=== PATIENT | female | born 1995 | race African-American/Black ===

== ENCOUNTER 2019-07-04 17:59 | Emergency (ER) | payer OTHER, SELFPAY ==
[2019-07-04 18:13] VITALS: BP 123/85; PULSE 92; RESP 18; TEMP 37.2; O2SAT 100
--- NOTE | 2019-07-04 19:02 | ED.DENTAL ---
HPI - Dental/Oral General Chief complaint: Dental/Oral Stated complaint: Tooth Ache Time Seen by Provider: 07/04/19 19:02 Source: patient Mode of arrival: ambulatory Limitations: no limitations History of Present Illness HPI Narrative: Tamika Min is a 23 yo female with no PMH who comes here with tooth pain x 3 days. Has tried to make an appointment with a dentist, is having trouble finding one that will take her. Pain is in tooth 2, 3 Related Data Allergies Allergy/AdvReac Type Severity Reaction Status Date / Time No Known Allergies Allergy Verified 07/04/19 18:09 Review of Systems Review of Systems: Narrative: CONSTITUTIONAL: Denies fever, chills, sweats. EYES: Denies visual changes, redness, discharge. ENT: Denies rhinorrhea, congestion, sore throat, otalgia. CARDIOVASCULAR: Denies chest pain, palpitations, edema. RESPIRATORY: Denies dyspnea, wheezing, cough GASTROINTESTINAL: Denies abdominal pain, nausea, vomiting, diarrhea. GENITOURINARY: Denies dysuria, hematuria, abnormal discharge SKIN: Denies rash or itching. NEUROLOGIC: Denies numbness, or focal weakness. PSYCHIATRIC: Denies anxiety or depression. Mouth: Tooth pain in teeth 2 and 3 PMFSH Family History Family History Other No active medical problems Social History Social History (Updated 07/04/19 @ 19:05 by Soniya Louis CNP) Smoking status: Never smoker Alcohol intake: never Comments At time of signature, I agree with nursing past medical, surgical, social and family history. There is no relevant family history pertinent to the presenting complaint. Exam Narrative: Exam Narrative: GENERAL: This is a well-nourished, well-developed patient, in mild distress. HEAD: normocephalic, atraumatic. EYES: PERRL. Sclera clear/white. Vision is grossly intact. EARS: External ears normal, Hearing grossly intact. NOSE: External nose normal with no obvious nasal discharge, nares without redness, no rhinorrhea. THROAT: Mucous membranes moist, posterior pharynx clear. Swelling around tooth 2 and 3, painful to open mouth wide NECK: Neck supple, non-tender without lymphadenopathy, masses or thyromegaly. CARDIOVASCULAR: Regular rate and rhythm without murmurs, gallops, or rubs. RESPIRATORY: Clear to auscultation. Breath sounds equal bilaterally. No wheezes, rales, or rhonchi. GASTROINTESTINAL: Abdomen soft, non-tender, nondistended. SKIN: warm, intact with no suspicious lesions or rash, good texture and turgor. NEURO: awake, alert, and oriented to person, place and time. There were no obvious focal neurologic abnormalities. Steady gait EXTREMITIES: Normal range of motion. No edema. BACK: Nontender without deformity or crepitance. No flank tenderness. Course Course Emergency Course: Started on penicillin ibuprofen and tramadol for tooth pain Vital Signs Vital signs: Vital Signs Temperature 98.9 F 07/04/19 18:13 Pulse Rate 92 07/04/19 18:13 Respiratory Rate 18 07/04/19 18:13 Blood Pressure 123/85 07/04/19 18:13 Pulse Oximetry 100 07/04/19 18:13 Temperature 98.9 F 07/04/19 18:13 Pulse Rate 92 07/04/19 18:13 Respiratory Rate 18 07/04/19 18:13 Blood Pressure 123/85 07/04/19 18:13 Pulse Oximetry 100 07/04/19 18:13 MDM - Dental/Oral Differential Diagnosis Differential diagnosis: Likely gingival abscess, dental caries, toothache and dental abscess Discharge Plan Discharge Clinical Impression: Toothache Patient Disposition: Home, Self-Care Condition: Stable Instructions: Toothache (ED) Prescriptions: New penicillin V potassium 500 mg tablet 500 mg PO Q8H Qty: 30 RF: 0 ibuprofen 600 mg tablet 600 mg PO Q6H PRN (Reason: pain) Qty: 30 RF: 0 tramadol 50 mg tablet 50 mg PO Q6H PRN (Reason: pain) Qty: 14 RF: 0 Follow-up/Referrals: UNKNOWN,DOCTOR [Primary Care Provider] - Stand Alone Forms: Work/School Release IP
== END 2019-07-04 19:12 | disposition home or self-care (01) ==
PROVIDERS: Emergency Provider Nurse Practitioner
DX: K08.89 Other specified disorders of teeth and supporting structures (principal)
CPT/HCPCS: 99203; G0463

== ENCOUNTER 2019-10-20 15:40 | Emergency (ER) | payer OTHER, SELFPAY ==
[2019-10-20 15:51] VITALS: BP 110/64; PULSE 73; RESP 16; TEMP 37.3; O2SAT 100
--- NOTE | 2019-10-20 16:22 | ED.DENTAL ---
HPI - Dental/Oral General Chief complaint: Dental/Oral Stated complaint: tooth abscess Time Seen by Provider: 10/20/19 16:14 Source: patient and RN notes reviewed Mode of arrival: ambulatory Limitations: no limitations History of Present Illness HPI Narrative: Patient presents today complaining of a 4-day history of pain to the right upper tooth. States she has had a hole in this tooth for several months, but her dentist appointment was canceled due to COVID-19, and rescheduled for January 03. She currently rates her pain 10/10 and has been taking Tylenol and ibuprofen without relief. Pain increases with eating. No recent antibiotic use. MD Complaint: tooth pain Related Data Home Medications Medication Instructions Recorded Confirmed etonogestrel-ethinyl estradiol 1 vag ring VAGINAL ONCE 10/20/19 10/20/19 [NuvaRing] Allergies Allergy/AdvReac Type Severity Reaction Status Date / Time No Known Allergies Allergy Verified 10/20/19 15:57 Review of Systems Review of Systems: Narrative: CONSTITUTIONAL: Denies body aches, fever, chills, or sweats. EYES: Denies visual changes, redness, or discharge. ENT: Denies rhinorrhea, congestion, sore throat, or otalgia.+ Dental pain CARDIOVASCULAR: Denies chest pain, palpitations, or edema. RESPIRATORY: Denies cough or dyspnea. GASTROINTESTINAL: Denies abdominal pain, nausea, vomiting, or diarrhea. GENITOURINARY: Denies dysuria or hematuria. SKIN: Denies rash, itching, or wounds. MUSCULOSKELETAL: Denies back pain, joint pain, or myalgia. NEUROLOGIC: Denies headache, numbness, tingling, or weakness. PSYCH: Denies depression or anxiety. PMFSH Social History Social History (Updated 07/04/19 @ 19:05 by Soniya Louis CNP) Smoking status: Never smoker Alcohol intake: never Gender identity (if verbalized by the patient): Female Comments At time of signature, I have reviewed and agree with nursing past medical, surgical, social and family history unless otherwise noted. Please see nursing chart for further information. There is no relevant family history pertinent to the presenting complaint Exam Narrative: Exam Narrative: GENERAL: Well-appearing, well-nourished, and in no acute distress. HEAD: Normocephalic, atraumatic. EYES: EOMI. No redness or drainage. Conjunctivae normal. ENT: Mucous membranes pink and moist. Throat normal. Uvula midline. + Tooth #2 has large cavity in the lateral half of the tooth. No obvious periapical abscess. No facial swelling. NECK: Normal AROM. Supple. No lymphadenopathy. CHEST: No respiratory distress. EXTREMITIES: Normal range of motion. No edema. SKIN: Warm, dry, no rash. Capillary refill normal. Normal skin turgor. NEURO: No focal deficits. Alert and oriented x3. Gait steady. PSYCH: Normal affect. No signs of depression or anxiety. Course Vital Signs Vital signs: Vital Signs Temperature 99.2 F 10/20/19 15:51 Pulse Rate 73 10/20/19 15:51 Respiratory Rate 16 10/20/19 15:51 Blood Pressure 110/64 10/20/19 15:51 Pulse Oximetry 100 10/20/19 15:51 Temperature 99.2 F 10/20/19 15:51 Pulse Rate 73 10/20/19 15:51 Respiratory Rate 16 10/20/19 15:51 Blood Pressure 110/64 10/20/19 15:51 Pulse Oximetry 100 10/20/19 15:51 Reviewed MDM - Dental/Oral Differential Diagnosis Differential diagnosis: Likely gingival abscess, dental caries, toothache, dental abscess and fracture of tooth Critical Care Time Critical Care Time Critical Care Time: No Discharge Plan Discharge Clinical Impression: Infected dental carries Patient Disposition: Home, Self-Care Condition: Stable Instructions: Antibiotic Form, Toothache (ED) Additional Instructions: Please take the amoxicillin as prescribed until gone. Follow-up with a dentist as soon as possible for further evaluation. Continue Tylenol or ibuprofen at home for pain. Patient Language: Sudanese Prescriptions: New amoxicillin 875 mg tabl
== END 2019-10-20 16:27 | disposition home or self-care (01) ==
PROVIDERS: Emergency Provider Nurse Practitioner
DX: K02.9 Dental caries, unspecified (principal)
CPT/HCPCS: 99213; G0463

== ENCOUNTER 2020-02-02 19:53 | Emergency (ER) | payer OTHER, SELFPAY ==
--- NOTE | ~2020-02-02 | CT_ITS ---
EXAMINATION: CT abdomen pelvis wo con DATE: 02/02/2020 21:21 INDICATION: Left flank pain TECHNIQUE: Computed tomography (CT) of the abdomen and pelvis was performed without intravenous contr ast. The dose-length product (DLP) was 497.52 mGy-cm. Automated exposure control and iterative recons truction technique were employed. COMPARISON: None FINDINGS: The lung bases are clear. The heart size is normal. The liver, spleen, pancreas, gallbladde r, and adrenal glands are normal. The kidneys are unremarkable. No stones are identified in the kidne ys, ureters, or bladder. There is no hydronephrosis or hydroureter. A 2 mm calcification of the left pelvis appears to be adjacent to, rather than within the left distal ureter. A trace amount of free f luid in the pelvis is likely physiologic. The appendix is normal. There is mild dextrocurvature of th e lumbar spine. IMPRESSION: 1. No CT correlate for the patient's symptoms. Reviewed, dictated and finalized at location A.
[2020-02-02 20:00] VITALS: BP 115/70; PULSE 85; RESP 20; TEMP 36.1; O2SAT 98
[2020-02-02 20:26] LABS: Basophils Percent Auto 0.5 % (0.2-1.2); Eosinophils Absolute Auto 0.2 K/mm3 (0-0.3); Eosinophils Percent Auto 2.7 % (0-4.4); Hematocrit 41.7 % (37.0-47.0); Hemoglobin 13.5 g/dL (12.0-15.0); Immature Granulocyte Absolute 0.02 K/mm3 (0.00-0.031); Immature Granulocyte Percent A 0.3 % (0-0.5); Lymphocytes Absolute Auto 2.44 K/mm3 (0.9-3.2); Lymphocytes Percent Auto 38.9 % (18.3-44.2); Mean Corpuscular HGB Conc 32.4 g/dl (32-36); Mean Corpuscular Volume 89.5 fl (80-100); Mean Platelet Volume 10.2 fl (7.4-10.4); Monocytes Absolute Auto 0.3 K/mm3 (0.1-0.6); Monocytes Percent Auto 4.9 % (2.6-8.5); Neutrophils Absolute Auto 3.3 K/mm3 (1.3-6.7); Neutrophils Percent Auto 52.7 % (45.5-73.1); Platelet Count Result 210 k/mm3 (150-375); Red Blood Count 4.66 M/mm3 (4.2-5.4); Red Cell Distribution Width 12.3 % (11.5-14.5); White Blood Count 6.3 K/mm3 (4.5-10.0)
[2020-02-02 20:40] LABS: Anion Gap 5 mmol/L (8-16); Blood Urea Nitrogen 17 mg/dL (7-17); Calcium 9.6 mg/dL (8.4-10.2); Carbon Dioxide 28 mmol/L (22-30); Chloride 103 mmol/L (98-107); Estimated CRCL calculation 89 ml/min; Estimated Glomerular Filt Rate > 60; Glucose 116 mg/dL (65-105); Potassium 4.3 mmol/L (3.4-5.0); Sodium 136 mmol/L (137-145)
[2020-02-02 21:12] LABS: Add Urine Microscopic? YES; Appearance Urine Cloudy (Clear); Bacteria Urine 2+ /hpf; Bilirubin Urine Negative (Negative); Blood Urine Negative (Negative); Color Urine Yellow (Yellow); Glucose Urine UA Negative (Negative); Ketones Urine Negative (Negative); Leukocyte Esterase Ur 3+ LEU/UL (Negative); Mucus Urine Rare /lpf; Nitrate Urine Negative (Negative); Protein Urine Negative (Negative); RBC Urine 0-2 /hpf (0-2); Specific Grav Ur 1.027 (1.001-1.035); Squamous Epithelial Cell Urine Many /hpf (Few)
--- NOTE | 2020-02-02 21:19 | ED.BACK ---
HPI - Back Pain/Injury General Chief Complaint: Back Pain/Injury Stated Complaint: sharp left side/back pain Time Seen by Provider: 02/02/20 19:54 Source: patient Mode of arrival: ambulatory Limitations: no limitations History of Present Illness HPI Narrative: Patient presents with chief complaint of left flank pain and frequent urination that began on Saturday. Patient states that the pain radiates into her lower back and is rated 8 out of 10 pain level. Patient denies fever, chills, nausea, vomiting, diarrhea. Patient states that she has been taking [id number] pain medications at home without relief of her symptoms as well as try to drink lots of fluids. Patient denies burning with urination, vaginal bleeding or discharge. Patient denies prior history of kidney stones or frequent urinary tract infections. Related Data Home Medications Medication Instructions Recorded Confirmed etonogestrel-ethinyl estradiol 1 vag ring VAGINAL ONCE 10/20/19 10/20/19 [NuvaRing] Allergies Allergy/AdvReac Type Severity Reaction Status Date / Time No Known Allergies Allergy Verified 02/02/20 19:54 Review of Systems Review of Systems: Narrative: CONSTITUTIONAL: Denies fever, chills, or sweats. EYES: Denies visual changes, redness, or discharge. ENT: Denies rhinorrhea, congestion, sore throat, or otalgia. CARDIOVASCULAR: Denies chest pain, palpitations, or edema. RESPIRATORY: Denies cough or dyspnea. GASTROINTESTINAL: Denies abdominal pain, nausea, vomiting, or diarrhea. GENITOURINARY: Reports frequent urination and left flank pain denies dysuria or hematuria. SKIN: Denies rash or itching. MUSCULOSKELETAL: Denies back pain, myalgia, or joint pain NEUROLOGIC: Denies headache, numbness, dizziness, or weakness. PSYCHIATRIC: Denies anxiety or depression. [facility] Social History Social History (Updated 07/04/19 @ 19:05 by Soniya Louis CNP) Smoking status: Never smoker Alcohol intake: never Gender identity (if verbalized by the patient): Female Exam Narrative: Exam Narrative: GENERAL: Well-appearing, well-nourished. HEAD: Normocephalic, atraumatic. EYES: PERRLA and EOMI. ENT: Nares clear, no rhinorrhea or epistaxis. Mucous membranes moist. Oropharynx without tonsillar hypertrophy exudate or other lesions. Bilateral TMs pearly clark nonbulging NECK: Supple. No adenopathy or masses. No vertebral tenderness or loss of ROM. CHEST: Clear to auscultation. No respiratory distress. No wheezes rales or rhonchi HEART: Regular rate and rhythm. Normal peripheral pulses. ABDOMEN: Soft, diffuse lower abdominal tenderness over the bladder, nondistended, normal active bowel sounds. No bruises noted. Left flank tenderness with percussion. EXTREMITIES: No acute changes in ROM. No edema. SKIN: Warm, dry, no rash. NEURO: No focal deficits. Alert and oriented x3. PSYCH: Normal mood and affect. Course Vital Signs Vital signs: Vital Signs Temperature 97.0 F L 02/02/20 20:00 Pulse Rate 85 02/02/20 20:00 Respiratory Rate 20 02/02/20 20:00 Blood Pressure 115/70 02/02/20 20:00 Pulse Oximetry 98 02/02/20 20:00 Temperature 97.0 F L 02/02/20 20:00 Pulse Rate 85 02/02/20 20:00 Respiratory Rate 20 02/02/20 20:00 Blood Pressure 115/70 02/02/20 20:00 Pulse Oximetry 98 02/02/20 20:00 MDM - Back Pain/Injury MDM Narrative Medical decision making narrative: Patient's vital signs, lab work and CT are negative for findings of kidney stone. Patient's vitals are stable she does not have any nausea, vomiting, or other signs of systemic infection that would make her a poor candidate for outpatient treatment. Patient states she is unable to obtain her prescriptions as her pharmacy is closed so patient will be given Rocephin in the ED prior to discharge to prevent worsening of her symptoms due to delay antibiotic therapy. Patient has urinary tract infection will be treated accordingly. Patient is instructed to fo
[2020-02-02] MEDS: KETOROLAC 15 MG/ML VIAL (*BKC) IV PUSH (21:50)
[2020-02-02 22:14] VITALS: BP 120/80; PULSE 80; RESP 18; O2SAT 99
== END 2020-02-02 22:15 | disposition home or self-care (01) ==
PROVIDERS: Emergency Provider Emergency Medicine
DX: N30.00 Acute cystitis without hematuria (principal)
CPT/HCPCS: 36415; 74176; 80048; 81001; 81025; 85025; 96365; 96375; 99284; J0696; J1885

== ENCOUNTER 2020-04-13 16:01 | Outpatient (CLI) | payer OTHER, SELFPAY ==
--- NOTE | ~2020-04-13 | XR_ITS ---
EXAMINATION: XR abdomen/kub 1V DATE: 04/13/2020 16:26 INDICATION: Left flank pain. TECHNIQUE: A supine view of the abdomen on 2 radiographs was obtained. COMPARISON: CT abdomen and pelvis 02/02/2020 FINDINGS: There are no dilated loops of bowel. There is a large volume of stool in the colon. There a re phleboliths in left pelvis. There is no urolithiasis. IMPRESSION: 1. No urolithiasis. Reviewed, dictated and finalized at location A. 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 No urolithiasis.
== END 2020-04-13 16:02 | disposition home or self-care (01) ==
PROVIDERS: Visit Provider Nurse Practitioner Family
DX: R10.9 Unspecified abdominal pain (principal)
CPT/HCPCS: 74018

== ENCOUNTER 2020-06-27 08:55 | Emergency (ER) | payer OTHER, SELFPAY ==
[2020-06-27 09:04] VITALS: BP 116/74; PULSE 74; RESP 16; TEMP 36.6; O2SAT 100
--- NOTE | 2020-06-27 09:10 | ED.EYEPROB ---
HPI - Eye Problem General Chief complaint: Eye Problems Stated complaint: Eye infection Time Seen by Provider: 06/27/20 09:10 Source: patient Mode of arrival: ambulatory Limitations: no limitations History of Present Illness HPI Narrative: 24-year-old female presents to [facility] with complaints of eye irritation, eye lid swelling with redness. Patient reports that she had eyelashes placed on Saturday, 2 days ago. Swelling started yesterday. Is trying to get an appointment to get the lashes removed. Denies change in vision. Related Data Home Medications Medication Instructions Recorded Confirmed No Home Medications 06/27/20 06/27/20 Allergies Allergy/AdvReac Type Severity Reaction Status Date / Time No Known Allergies Allergy Verified 06/27/20 09:17 Review of Systems Review of Systems: Narrative: CONSTITUTIONAL: Denies fever, chills, or sweats. EYES: Denies visual changes. Eyelid redness and swelling ENT: Denies rhinorrhea, congestion, sore throat, or otalgia. CARDIOVASCULAR: Denies chest pain, palpitations, or edema. RESPIRATORY: Denies cough or dyspnea. GASTROINTESTINAL: Denies abdominal pain, nausea, vomiting, or diarrhea. GENITOURINARY: Denies dysuria or hematuria. SKIN: Denies rash or itching. MUSCULOSKELETAL: Denies back pain, joint pain, or myalgia. NEUROLOGIC: Denies headache, numbness, or weakness. PSYCHIATRIC: Denies anxiety or depression. All other systems reviewed are negative, except as documented in HPI. [facility] Family History Family History Other No active medical problems Social History Social History Smoking status: Never smoker Alcohol intake: never Gender identity (if verbalized by the patient): Female Comments At the time of my signature, I reviewed and agree with the nursing past medical, surgical, social, and family history. There is no relevant family history pertinent to the patient complaint. Exam Narrative: Exam Narrative: GENERAL: This is a well-nourished, well-developed patient, in no apparent distress. HEAD: normocephalic, atraumatic. EYES: PERRL. Sclera right hand. Vision is grossly intact. Upper eyelid red without increased warmth, swelling, for eyelashes, globs glue. EARS: External ears normal. NECK: Neck supple, non-tender without lymphadenopathy, masses or thyromegaly. CARDIOVASCULAR: Regular rate and rhythm without murmurs, gallops, or rubs. RESPIRATORY: Clear to auscultation. Breath sounds equal bilaterally. No wheezes, rales, or rhonchi. GASTROINTESTINAL: Abdomen soft, non-tender, nondistended. SKIN: warm, intact with no suspicious lesions or rash, good texture and turgor. NEURO: awake, alert, and oriented to person, place and time. There were no obvious focal neurologic abnormalities. EXTREMITIES: No clubbing, cyanosis, or edema. BACK: Nontender without deformity. Course Course Emergency Course: Discussed with patient that she needs to have her eyelashes removed as soon as possible. Received a call from [employer]. Change the eyedrops to plain Bleph -10 Vital Signs Vital signs: Vital Signs Temperature 97.8 F 06/27/20 09:04 Pulse Rate 74 06/27/20 09:04 Respiratory Rate 16 06/27/20 09:04 Blood Pressure 116/74 06/27/20 09:04 Pulse Oximetry 100 06/27/20 09:04 Temperature 97.8 F 06/27/20 09:04 Pulse Rate 74 06/27/20 09:04 Respiratory Rate 16 06/27/20 09:04 Blood Pressure 116/74 06/27/20 09:04 Pulse Oximetry 100 06/27/20 09:04 Reviewed, within defined limits MDM - Eye Problem MDM Narrative Medical decision making narrative: Discharge instructions reviewed with patient, as well as provided in writing per nursing staff. The instructions also include specific and strict return/GO TO THE ER as well as f/u information. All questions have been answered, and the patient deny any further questions with discharge and discharg
== END 2020-06-27 09:23 | disposition home or self-care (01) ==
PROVIDERS: Emergency Provider Nurse Practitioner
DX: L23.9 Allergic contact dermatitis, unspecified cause (principal)
CPT/HCPCS: 99213; G0463

== ENCOUNTER 2021-02-01 15:53 | Emergency (ER) | payer OTHER, SELFPAY ==
[2021-02-01 15:59] VITALS: BP 120/53; PULSE 82; RESP 16; TEMP 36.5; O2SAT 100
[2021-02-01 16:18] LABS: Basophils Percent Auto 0.4 % (0.2-1.2); Eosinophils Absolute Auto 0.2 K/mm3 (0-0.3); Eosinophils Percent Auto 3.7 % (0-4.4); Hematocrit 36.9 % (37.0-47.0); Immature Granulocyte Absolute 0.01 K/mm3 (0.00-0.031); Immature Granulocyte Percent A 0.2 % (0-0.5); Lymphocytes Absolute Auto 2.17 K/mm3 (0.9-3.2); Mean Corpuscular HGB Conc 32.5 g/dl (32-36); Mean Corpuscular Hemoglobin 28.8 pg (26-34); Mean Corpuscular Volume 88.7 fl (80-100); Mean Platelet Volume 10.5 fl (7.4-10.4); Monocytes Absolute Auto 0.2 K/mm3 (0.1-0.6); Monocytes Percent Auto 3.9 % (2.6-8.5); Neutrophils Absolute Auto 2.8 K/mm3 (1.3-6.7); Neutrophils Percent Auto 51.8 % (45.5-73.1); Platelet Count Result 194 k/mm3 (150-375); Red Blood Count 4.16 M/mm3 (4.2-5.4); Red Cell Distribution Width 12.2 % (11.5-14.5); White Blood Count 5.4 K/mm3 (4.5-10.0)
[2021-02-01 16:29] LABS: Alanine Aminotransferase 12 U/L (4-35); Albumin Level 4.5 g/dL (3.5-5.1); Alkaline Phosphatase 115 U/L (38-126); Anion Gap 9 mmol/L (8-16); Aspartate Amino Transferase 20 U/L (14-36); Bilirubin,Total 0.3 mg/dL (0.2-1.3); Blood Urea Nitrogen 13 mg/dL (7-17); Calcium 9.5 mg/dL (8.4-10.2); Carbon Dioxide 28 mmol/L (22-30); Chloride 100 mmol/L (98-107); Estimated CRCL calculation 106 ml/min; Estimated Glomerular Filt Rate > 60; Glucose 143 mg/dL (65-110); Lipase 111 U/L (23-300); Potassium 4.1 mmol/L (3.4-5.0); Sodium 137 mmol/L (137-145)
[2021-02-01 17:24] VITALS: BP 132/89; PULSE 86; RESP 15; O2SAT 98
--- NOTE | 2021-02-01 17:35 | ED.ABDPAIN ---
HPI - Abdominal Pain General Chief Complaint: Abdominal Pain Stated Complaint: vag bleed/abd pain Time Seen by Provider: 02/01/21 17:35 Source: patient and RN notes reviewed Mode of arrival: ambulatory Limitations: no limitations History of Present Illness HPI narrative: Patient is 25 years old -[place] female drove herself to the emergency room because of vaginal bleeding, passing blood clots with abdominal cramps. Is been going for the last 3 months. History of bilateral tubal ligation. Patient is 2, para 2 and 0. Patient is telling me that her menstrual cycle usually last 4 to 8 weeks. Was seen by an MANAGER UNDERWRITING at [facility]. Patient did not have money to buy medication prescribed by that MANAGER UNDERWRITING.. Patient denies any headache, lightheadedness, dizziness, nausea, vomiting, chest pain. Patient is telling me that she been changing pad every 2 hours. Related Data Allergies Allergy/AdvReac Type Severity Reaction Status Date / Time No Known Allergies Allergy Verified 02/01/21 16:01 Review of Systems Review of Systems: CONSTITUTIONAL: Denies fever, chills, or sweats. EYES: Denies visual changes, redness, or discharge. ENT: Denies rhinorrhea, congestion, sore throat, or otalgia. CARDIOVASCULAR: Denies chest pain, palpitations, or edema. RESPIRATORY: Denies cough or dyspnea. GASTROINTESTINAL: Denies abdominal pain, nausea, vomiting, or diarrhea. GENITOURINARY: Denies dysuria or hematuria. SKIN: Denies rash or itching. MUSCULOSKELETAL: Denies back pain, joint pain, or myalgia. NEUROLOGIC: Denies headache, numbness, or weakness. PSYCHIATRIC: Denies anxiety or depression. [facility] Family History Family History Other No active medical problems Social History Social History Smoking status: Never smoker Alcohol intake: never Gender identity (if verbalized by the patient): Female Exam Narrative: General appearance: Well-developed, well-nourished Skin: Normal color Head: Normocephalic, nontraumatic Eyes: Clear conjunctiva ENT: Oropharynx normal, ears normal, nose normal Neck: Supple, nontender Chest and respiratory: Airway patent, no respiratory distress, no accessory muscle use Heart: Regular rate/rhythm Abdomen: Soft, nontender, no organomegaly, quiet bowel sounds Vascular: Normal peripheral pulses, normal capillary refill. 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 Cox. Sprinte[facility] Date: 02/01/21 Time: 19:37 Vital Signs Vital signs: Vital Signs Temperature 36.5 C 02/01/21 15:59 Pulse Rate 82 02/01/21 15:59 Respiratory Rate 16 02/01/21 15:59 Blood Pressure 120/53 L 02/01/21 15:59 Pulse Oximetry 100 02/01/21 15:59 Temperature 36.5 C 02/01/21 15:59 Pulse Rate 84 02/01/21 18:34 Respiratory Rate 15 02/01/21 17:24 Blood Pressure 110/81 02/01/21 18:34 Pulse Oximetry 98 02/01/21 17:24 MDM - Abdominal Pain MDM Narrative Medical decision making narrative: Patient hemoglobin is within normal limit, patient was not orthostatic. The plan to send patient home, recommendation to encourage fluid intake and follow-up with Dr. Cox as outpatient. Differential Diagnosis Differential diagnosis: Likely other (Dysfunctio
[2021-02-01 18:03] LABS: Add Urine Microscopic? YES; Appearance Urine Clear (Clear); Bilirubin Urine Negative (Negative); Blood Urine 3+ (Negative); Color Urine Yellow (Yellow); Glucose Urine UA Negative (Negative); Ketones Urine Negative (Negative); Leukocyte Esterase Ur Negative LEU/UL (Negative); Mucus Urine Rare /lpf; Nitrate Urine Negative (Negative); Protein Urine Negative (Negative); RBC Urine 21-50 /hpf (0-2); Specific Grav Ur 1.024 (1.001-1.035); Squamous Epithelial Cell Urine Few /hpf (Few)
[2021-02-01 18:25] VITALS: BP 110/72; PULSE 78
[2021-02-01 18:30] VITALS: BP 112/68; PULSE 78
[2021-02-01 18:34] VITALS: BP 110/81; PULSE 84
[2021-02-01 19:51] VITALS: BP 105/59; PULSE 77; RESP 16; O2SAT 97
== END 2021-02-01 19:46 | disposition home or self-care (01) ==
PROVIDERS: Emergency Medicine; Emergency Provider Emergency Medicine
DX: N93.8 Other specified abnormal uterine and vaginal bleeding (principal)
CPT/HCPCS: 36415; 80053; 81001; 81025; 83690; 85025; 99283

== ENCOUNTER 2022-07-12 15:30 | Outpatient (RCR) | payer OTHER, SELFPAY ==
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
--- NOTE | 2022-06-21 15:34 | PCPTNOTE ---
Pt did not show up for scheduled appointment this date. PT called pt regarding missed visit but had to leave a message.
--- NOTE | 2022-07-03 16:00 | PCPTNOTE ---
Pt NS for appt today, FELT FINISHER attempted to call and leave message but pt's mailbox is full.
--- NOTE | 2022-07-05 16:04 | PCPTNOTE ---
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 on the at 3:45.
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
== END 2022-07-13 14:18 | disposition home or self-care (01) ==
LOC: ANHPT 15:30
PROVIDERS: Visit Provider Physician Assistant
DX: M25.562 Pain in left knee (principal)
CPT/HCPCS: 97014; 97110; 97140; 97161; 97530; 99199; G0283